=== PATIENT | female | born 1990 | race Caucasian/White ===

== ENCOUNTER → 2019-03-18 13:26 | Outpatient (CLI) | payer OTHER, SELFPAY ==
--- NOTE | 2019-03-18 13:28 | DI.US.S_ITS ---
PROCEDURE: US OB >= 14 WEEKS FETUS INDICATIONS: Anatomy US from 03/15/19 OUTSIDE/PRIOR DATING DATA: Last menstrual period (LMP): 10/16/18. LMP-based estimated date of delivery (IRON): 07/23/19. First dating scan (date and location): 12/19/18. Estimated date of delivery (IRON) from first dating scan: 08/01/19. TECHNIQUE: Real-time scanning was performed of the fetus, with image documentation and biometric measurements. Endovaginal scanning: Not needed for this study COMPARISON: None. FINDINGS: General: A single living intrauterine gestation is present. Presentation: Breech. Placenta: Placental position is anterior, without previa. Amniotic fluid index: 11.4 cm, normal range is 5-24 cm. heart rate: 147 beats per minute. Maternal cervical canal: 3.8 cm long. Normal lower limit is 2.5 cm. biometrics: Biparietal diameter: 4.9 cm, 20 weeks 5 days Head circumference: 18.1 cm, 20 weeks 4 days Abdominal circumference: 15.5 cm, 20 weeks 5 days Femur length: 3.4 cm, 20 weeks 6 days Estimated gestational age from initial scan: 20 weeks 4 days Composite gestational age from present scan: 20 weeks 5 days Estimated weight and percentile: 374 g, 55th percentile Measurement variability for biometric dating: +/- 7 days from 14 weeks to 15 weeks 6 days gestation, +/- 10 days from 16 weeks to 21 weeks 6 days gestation, +/- 2 weeks from 22 weeks to 27 weeks 6 days gestation, +/- 3 weeks for 28 weeks gestation or later. weight reference: 4500 g or EFW >90/95% is considered macrosomia or large for gestational age. EFW <10% is small for gestational age. EFW 5% or less is considered intra-uterine growth restriction. Anatomic survey: Neuro: Ventricles are non-dilated at less than 10 mm. Cisterna magna is normal at 3-11 mm. Cerebellum is normal in size and morphology. Nuchal skin fold: Normal at less than 6 mm between 14-21 weeks gestational age. Face: Nose and lips, facial profile are normal. Spine: No evidence for spina bifida. Heart: 4-chambered heart is present, with normal ventricular outflow tracts. Diaphragm: Diaphragm is intact. Stomach: Left-sided stomach is present. Kidneys: No hydronephrosis. Normal is less than 5 mm in 2nd trimester, less than 7 mm in 3rd trimester. Cord: 3-vessel cord has orthotopic insertion. Bladder: Normal in size. Extremities: All 4 extremities identified. IMPRESSION: Appropriate interval growth, no anomalies seen. However, the sacral spine area was poorly seen due to positioning and depending on the clinical status followup by delayed limited OB ultrasound in 10 days-2 weeks may be warranted to attempt completion of the anatomic survey. Dictated by: Abdiel Rivas M.D. on 03/18/2019 at 15:16 Approved by: Abdiel Rivas M.D. on 03/18/2019 at 15:19
== END ==
PROVIDERS: PCP Family Medicine; Visit Provider Family Medicine
DX: Z34.82 Encounter for supervision of other normal pregnancy, second trimester (principal); Z3A.20 20 weeks gestation of pregnancy
CPT/HCPCS: 76811

== ENCOUNTER 2019-04-12 13:48 | Outpatient (CLI) | payer OTHER, SELFPAY ==
--- NOTE | 2019-04-12 17:01 | P.TNLD_ITS ---
Visit Information Visit Information Date of evaluation: 04/12/19 Primary OB Provider: Tisha France Reason for Evaluation: Yes non-stress test non-stress test reason: decreased movement Comments/Additional reasons for admission: Patient is 25 weeks and called in stating she has not felt the baby move very much today and was worried. Vital Signs Vital Signs: Temperature 36.2? blood pressure 113/52 [facility] Medical History (Updated 04/12/19 @ 17:03 by Tisha France DO) Anemia affecting (Acute) Anxiety (Acute) Surgical History (Updated 02/22/19 @ 14:35 by Yamila Oropeza, RN) [place] teeth extracted (Acute) Family History (Updated 02/22/19 @ 14:40 by Yamila Oropeza RN) Family/Other Diabetes mellitus Father Hyperlipidemia Hypertension Anxiety Grandmother Chronic pain Grandfather Stroke Grandmother No problems noted. 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 Fetus active in the center. Patient reassured. F ollow-up with Dr. Soto as scheduled. OB Disposition: home
== END 2019-04-12 15:00 | disposition home or self-care (01) ==
LOC: LABOR 14:25 → OB 04-15 13:19
PROVIDERS: PCP Family Medicine; Referring Provider Family Medicine; Visit Provider Family Medicine
DX: O36.8120 Decreased fetal movements, second trimester, not applicable or unspecified (principal); Z3A.25 25 weeks gestation of pregnancy
CPT/HCPCS: 59025; G0378; G0379

== ENCOUNTER → 2019-04-22 15:50 | Outpatient (CLI) | payer OTHER, SELFPAY ==
[2019-04-22 17:33] LABS: Hematocrit 33.7 % (36-46); Hemoglobin 11.8 g/dL (12.0-16.0)
[2019-04-22 18:12] LABS: GTT (PREG) 1 Hour PP 50gm Dose 139 mg/dL (76-139)
== END ==
PROVIDERS: PCP Family Medicine; Referring Provider Family Medicine; Visit Provider Family Medicine
DX: Z34.82 Encounter for supervision of other normal pregnancy, second trimester (principal); Z3A.26 26 weeks gestation of pregnancy
CPT/HCPCS: 36415; 82950; 85014; 85018

== ENCOUNTER 2019-06-28 16:18 | Outpatient (CLI) | payer OTHER, SELFPAY ==
--- NOTE | 2019-06-28 16:57 | PM.OBTRLD ---
Visit Information Visit Information Date of evaluation: 06/28/19 Primary OB Provider: Flip Soto On-call OB Provider: Sarah Kemp Comments/Additional reasons for admission: Pt with decreased movement and worsening LE edema. She feels the edema has been gradually worsening over time, but this morning did not seem improved as it usually does after rest. Denies any headache, vision changes, significant RUQ pain. She has felt baby move during the day, but not as much as usual. No vaginal bleeding or LOF. 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[employer]) special alberto needs: No Smoking Status: Never smoker Smokeless tobacco user: dissolvable tobacco (vape) second hand exposure: No alcohol intake: former substance use type: does not use Exam Narrative Exam Narrative: Gen: NAD, sitting comfortably in bed, appears well CV: RRR, no murmurs Resp: clear to auscultation bilaterally Abd: soft, nontender, nondistended, gravid Ext: 2+ pitting edema bilateral LE to mid-calf level Evaluation Evaluation Baseline heart rate: 140 Variability: Moderate (11-25) monitor accelerations: Present monitor decelerations: Absent Diagnosis, Plan/Disposition Final Diagnosis (1) Swelling of lower extremity: Current Visit: No Status: Acute (2) Decreased movement: Current Visit: No Status: Acute (3) 35 weeks gestation of : Current Visit: No Status: Acute Plan/Disposition Plan: 28yo at 35w1d here with decreased movement and worsening LE edema. Reactive NST today. BP remained in normal range for multiple checks here. No other signs/symptoms of pre-eclampsia, and edema has been gradual onset. U/A with only trace protein. Stable for d/c home. Discussed fluid intake, low salt diet, walking. OB Disposition: home
[2019-06-28 17:22] LABS: RBC Urine None Seen (0-5/HPF)
[2019-06-28 17:24] LABS: Appearance Urine UA SL CLOUDY; Bilirubin Urine UA NEGATIVE (NEGATIVE); Color Urine UA YELLOW; Glucose Urine UA 1+ g/dL (Negative); Ketones Urine UA NEGATIVE (NEGATIVE); Leukocyte Esterase Urine UA NEGATIVE (NEGATIVE); Nitrite Urine UA NEGATIVE (Negative); Occult Blood Urine UA NEGATIVE (Negative); Protein Urine UA TRACE (Negative); Urobilinogen Urine UA 0.2 E.U./dL (0.2)
[2019-06-28 17:31] LABS: pH Urine UA 6.5 (4.5-8.0)
[2019-06-28 17:42] LABS: Squamous Epithelial Cell Urine 1-5 /HPF (0-5/HPF)
[2019-06-28 17:43] LABS: Bacteria Urine Many (>30); Culture Indicated Urine Cult Not Indicated; WBC Urine 0-1/HPF (0-5/HPF)
== END 2019-06-28 18:00 | disposition home or self-care (01) ==
LOC: OB 07-01 12:50
PROVIDERS: PCP Family Medicine; Referring Provider Family Medicine; Visit Provider Family Medicine
DX: O36.8130 Decreased fetal movements, third trimester, not applicable or unspecified (principal); O13.3 Gestational [pregnancy-induced] hypertension without significant proteinuria, third trimester; R60.0 Localized edema; Z3A.35 35 weeks gestation of pregnancy
CPT/HCPCS: 59025; 81001; G0378; G0379

== ENCOUNTER → 2019-07-02 15:50 | Outpatient (CLI) | payer OTHER, SELFPAY ==
[2019-07-03 13:16] LABS: Strep Grp B PCR POS for Grp B Strep
== END ==
PROVIDERS: PCP Family Medicine; Visit Provider Family Medicine
DX: Z34.83 Encounter for supervision of other normal pregnancy, third trimester (principal); Z3A.35 35 weeks gestation of pregnancy
CPT/HCPCS: 87653

== ENCOUNTER 2019-07-14 18:58 | Outpatient (CLI) | payer OTHER, SELFPAY ==
--- NOTE | 2019-07-15 07:27 | P.TNLD_ITS ---
Visit Information Visit Information Date of evaluation: 07/14/19 Primary OB Provider: Flip Soto On-call OB Provider: Beatris Altamirano Reason for Evaluation: Yes non-stress test Comments/Additional reasons for admission: 28YO Female @ 37wks 3days here for evaluation for decreased FM and concern for recently elevated BPs in clinic, now with mild IBARRA today. No cramping, VB or LOF. Vital Signs Vital Signs: BP 114/64, [id number], RR18/min, T98.2F Temporal PFSH Medical History Anemia affecting (Acute) Anxiety (Acute) Surgical History [place] teeth extracted (Acute) Family History Family/Other Diabetes mellitus Father Hyperlipidemia Hypertension Anxiety Grandmother Chronic pain Grandfather Stroke Grandmother No problems noted. 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[employer]) special alberto needs: No Smoking Status: Never smoker Smokeless tobacco user: dissolvable tobacco (vape) second hand exposure: No alcohol intake: former substance use type: does not use Review of Systems Review of Systems ROS: Yes All systems reviewed with the patient and are negative except as otherwise documented Exam Vital Signs (past 8 hours): see above Objective Labs Labs: no lab work ordered Evaluation Evaluation Baseline heart rate: 135 Variability: Moderate (11-25) monitor accelerations: Present monitor decelerations: Absent Contraction Frequency (minutes): 0 Category of Tracing: I Diagnosis, Plan/Disposition Plan/Disposition Plan: Discharge to home with routine precautions. Reassurance given on normal BP and audible FM during NST. F/U w/ as previously scheduled. OB Disposition: home
== END 2019-07-14 19:55 | disposition home or self-care (01) ==
LOC: LABOR 19:09 → OB 07-16 13:34
PROVIDERS: PCP Family Medicine; Referring Provider Nurse Practitioner Obstetrics & Gynecology; Visit Provider Nurse Practitioner Obstetrics & Gynecology
DX: O36.8130 Decreased fetal movements, third trimester, not applicable or unspecified (principal); Z3A.37 37 weeks gestation of pregnancy
CPT/HCPCS: 59025; G0378; G0379

== ENCOUNTER 2019-07-16 17:00 | Inpatient (IN) | payer OTHER, SELFPAY ==
[2019-07-16 18:00] VITALS: BP 131/90
--- NOTE | 2019-07-16 19:18 | P.HPOB_ITS ---
OB HPI History of Present Condition Chief complaint: OBSERVATION OF LABOR Narrative: Robina Owen is a 28 year old female G2 para 0 estimated due date 07/31/2018 based on early ultrasound and 07/23/2019 based on LMP. Patient states she may have started leaking on the or . She says she was ensured she just thought she had increased vaginal discharge. She she was wearing a panty liner over the weekend. She was in the center on Monday for decreased movement. Had an evaluation then a reactive NST vital signs were stable. She did not mention that time that she was possibly leaking fluid. Patient was seen in my office today no discussion evaluation she was stating she had increased vaginal discharge on review of that and my concern for possible rupture membranes and nitrazine test was done which was positive she was then sent down to the center and had an AmniSure that was positive. Patient is not sure but she thinks maybe rupture membranes Monday possibly Monday. She has been feeling fine since then no fevers. She says it is a little bit leaking here and there but not consistent. She is feeling baby move. She is continuing to have swelling. On examination in the center. The patient's vital signs were stable she was afebrile. Patient's tracing was category 1. After discussion of patient and review of her current situation patient was admitted to the center for labor induction. On review of her records from outside source as she was a transfer of care at 17 weeks her labs showedPrenatal labs initial hemoglobin 13 hematocrit 38.0 platelets 221 toxoplasmosis negative blood type O positive antibody screen negative rubella immune urine culture mixed ellyn varicella nonimmune GC chlamydia negative. Her GBS status is positive. [facility] Medical History Anemia affecting (Acute) Anxiety (Acute) Surgical History [place] teeth extracted (Acute) Family History Family/Other Diabetes mellitus Father Hyperlipidemia Hypertension Anxiety Grandmother Chronic pain Grandfather Stroke Grandmother No problems noted. 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 General: Alert no apparent distress. Affect is appropriate. Vital signs are stable afebrile HEENT: Neck is supple without lymphadenopathy pupils equal round and reactive. Cardio: S1-S2 regular rate and rhythm. Respiratory: Lungs clear to auscultation. Abdomen: Gravid. Extremities: Normal deep tendon reflexes trace edema. [place]: Minimal contractions heart tones: Category 1 tracing heart rate average 140 Assessment and Plan Assessment and Plan Assessment and Plan narrative: 28-year-old G2 para 1 term estimated due date of 07/23/2019 based on early ultrasound in 528 1st on 20 week ultrasound and 513 based on LMP here for rupture membranes without labor. Concern possible rupture membranes since the or based on patient's history a recollection she says she is not sure. She says small trickle. She has not noticed odor greenish discharge she has not had fevers sure pills abdominal pain or tenderness and was in the center over the weekend because of concern about decreased movement and patient had good movement on evaluation in the center normal vital signs and reactive strip. Currently patient's blood pressure and vital signs are stable. She has a category 1 heart tracing. Cervical exam shows 60% -3 station finger temp. Ultrasound shows vertex position. Amniotic fluid was found to be adequate. Reviewed with patient partner concerns about prolonged rupture of membranes. Discussed about expectant management with induction of labor with the cervical ripening agent and Pitocin discussed with my ECMO immediate concerns about risk of infection chorioamnionitis and stress and distress and mortality which has increased in patient with prolonged rupture of membranes. Did discuss about expedited delivery with with patient. Patient is reassuring category 1 and vital signs are stable and she is afebrile. Patient wanted to continue with expectant management. We discussed if patient develops fever or on reassuring heart tones that the section would become an immediate the eminent. Patient was agreement with this plan. Patient will have an IV started. She is GBS positive will be started on antibiotic prophylaxis. Patient will have frequent monitoring of vitals and expectant management. On examination I do not appreciate any foul odorous vaginal discharge. She does not have uterine tenderness.
[2019-07-16] MEDS: CALCIUM CARBONATE 500 MG TAB PO ×2 (19:50→20:42)
[2019-07-16] MEDS: PENICILLIN G POTASSIUM 5,000,000 UNIT in DEXTROSE 5% IN WATER 250 ML IV (19:51)
[2019-07-16] MEDS: LACTATED RINGERS 1,000 ML 100 ML IV (19:55)
[2019-07-16 20:13] LABS: Add Manual Diff / Slide Review NO; Basophils Absolute Auto 0 /uL (0-100); Basophils Percent Auto 0.2 % (0-2); Eosinophils Absolute Auto 100 /uL (0-450); Eosinophils Percent Auto 0.9 % (2-4); Hematocrit 38.2 % (36-46); Hemoglobin 12.8 g/dL (12.0-16.0); Lymphocytes Absolute Auto 2100 /uL (1100-4500); Lymphocytes Percent Auto 18.9 % (25-40); Mean Corpuscular HGB Conc 33.5 % (30-36); Mean Corpuscular Hemoglobin 30.3 PG (26-34); Mean Corpuscular Volume 90.4 fL (80-100); Monocytes Absolute Auto 800 /uL (0-900); Monocytes Percent Auto 6.8 % (3-14); Neutrophils Absolute Auto 8300 /uL (1500-7000); Neutrophils Percent Auto 73.2 % (50-75); Platelet Count 228 X10^3/uL (150-400); Red Blood Cell Count 4.23 X10^6/uL (4.0-5.2); Red Cell Distribution Width 13.6 % (11.6-14.8); White Blood Cell Count 11.3 X10^3/uL (4.5-11.0)
[2019-07-16] MEDS: DINOPROSTONE VAG (CERVIDIL) 10 MG VAG (20:36)
[2019-07-16 21:34] LABS: COVID19 -Nasal RAPID Negative (Negative)
[2019-07-17] MEDS: PENICILLIN G POTASSIUM 3,000,000 UNIT/50 ML FROZ.PIGGY 100 UNIT IV ×3 (00:32→09:04)
--- NOTE | 2019-07-17 06:50 | P.PN_ITS ---
Subjective Subjective Date Patient Seen: 07/17/19 Time Patient Seen: 06:50 Interval history: Patient with ongoing induction. Rupture of membranes at term without contractions and cervical change. Patient was given Cervidil last night. Patient's vital signs have been stable. Blood pressure is a little bit high in the 130 systolic range. On occasion otherwise 120s. No symptoms of headache or dizziness. Still has some edema. Tracing overnight category 1. She has been afebrile she feels good this morning. Wants to get a shower had a little bit to eat last night. Mainly just Jell-O applesauce and pudding. Exam Narrative Exam Narrative: . General: Alert no apparent distress. HEENT: Pupils equal round and reactive or mucosa is moist Cardio: S1-S2 regular rate and rhythm. Respiratory: Lungs clear to auscultation. Abdomen: Gravid. Extremities: Normal deep tendon reflexes positive for edema. [place]: Sporadic contractions heart tones: Category 1 1 cm 80% -3 station soft mid position Objective Labs Result Diagrams: 07/16/19 19:25 Labs: Laboratory Results - last 24 hr 07/16/19 07/16/19 07/16/19 19:10 19:25 19:25 WBC 11.3 H RBC 4.23 Hgb 12.8 Hct 38.2 MCV 90.4 MCH 30.3 MCHC 33.5 RDW 13.6 Plt Count 228 Neut % (Auto) 73.2 Lymph % (Auto) 18.9 L [place] % (Auto) 6.8 Eos % (Auto) 0.9 L Baso % (Auto) 0.2 Neut # (Auto) 8300 H Lymph # (Auto) 2100 [place] # (Auto) 800 Eos # (Auto) 100 Baso # (Auto) 0 COVID-19 PCR Negative Blood Type O Positive Antibody Screen Negative Assessment & Plan Assessment & Plan narrative: 28-year-old female at term with rupture membranes without labor. Possible rupture on the or . Patient's vitals are stable I will. She is afebrile. GBS status is positive. Ongoing use of penicillin. Category 1 heart tracing. Cervidil last night showed cervical ripening this morning with change of cervix. Intermittent contractions. Patient does not feel. Ongoing induction start Pitocin per protocol this morning. Discussed again risks benefits of ongoing induction. Risk of chorioamnionitis fever and mom and sepsis and baby. Mom is aware of this. Did discuss options of eminent delivery was if a signs of deterioration. Continue to monitor closely.
[2019-07-17] MEDS: LACTATED RINGERS 1,000 ML 100 ML IV ×2 (08:16→15:17)
[2019-07-17] MEDS: OXYTOCIN PREMIX 30 UNIT/500 ML PLAST..BAG IV (08:18)
[2019-07-17] MEDS: CALCIUM CARBONATE 500 MG TAB PO (08:25)
[2019-07-17 10:02] LABS: Alanine Aminotransferase 12 IU/L (<35); Albumin 3.5 g/dL (3.5-5.0); Albumin Globulin Ratio 1.1 (1.0-2.8); Alkaline Phosphatase 107 U/L (38-126); Aspartate Aminotransferase 21 IU/L (14-36); Bilirubin Total 0.3 mg/dL (0.2-1.3); Bilirubin Unconjugated 0.3 mg/dL (0.0-1.1); Globulin 3.3 g/dL (1.7-4.1); HEMOLYSIS < 15 (0-50); Total Protein 6.8 g/dL (6.3-8.2); Uric Acid 4.2 mg/dL (2.5-6.2)
--- NOTE | 2019-07-17 10:36 | PM.OBPNLAB ---
Date/Time Date Patient Seen: 07/17/19 Time Patient Seen: 10:36 Pain Control Pain control: tolerating well Contractions Pitocin rate (mU/min): 2 Contraction pattern: Irregular Status status: Category ll Heart Rate Baseline: 150 Comments: Patient strip being monitored all morning vital signs are stable. Got up to 2 units of Pitocin. heart rate strip became a little bit less reactive went from category 1 to category 2 heart baseline went from 140. 150s. Got patient up out of bed the patient fluid bolus. Repositioned. Patient's vital signs have been stable. Concerning change of category of tracing. Discussed this with patient. Baby not tolerating contractions and pitocin. Expediting delivery via . Reviewed risks benefits and common complications of operative delivery baby. Discussed alternatives which be continue Pitocin contractions and concerns of baby not tolerating labor which currently is showing signs that it is not. Discussed with operating room room crew on-call and patient will be moved to the OR.
[2019-07-17] MEDS: CEFAZOLIN 2 GM/100 ML FROZ.PIGGY IV (11:38)
--- NOTE | 2019-07-17 12:04 | SUR.OPER ---
Supine on Padded OR bed, head on pillow, safety belt at thigh, arms secured on padded arm boards at <90 degrees abduction. Bump under right buttock. Legs uncrossed with pillow under knees, gel pad to heels, tape over blanket to lower legs.
--- NOTE | 2019-07-17 12:22 | SUR.OPER ---
FHT 150 LIVE BABY BOY BORN AT 1210
[2019-07-17] MEDS: ACETAMINOPHEN IV 1,000 MG/100 ML VIAL 400 MG IV (12:43)
--- NOTE | 2019-07-17 12:53 | PM.PROC.1 ---
Procedures Date/Time Date of procedure: 07/17/19 Time of procedure: 12:53 General Procedure description: Procedure: Lower segment transverse section Consent: Verbal and written informed consent were obtained from the patient placed on the chart. Indications: 28-year-old G2 para 1 term with prolonged rupture of membranes trial labor with non reassuring heart tones Findings: Normal uterus normal ovaries Normal male Anesthesia: Spinal Surgeon: Dr. Flip Soto Metal Casket Assembler: Dr. Martínez follows Estimated blood loss: 500 mL Drains: Sena to gravity. IV fluids: 1800 LR Description of procedure: The patient was brought to the operating room after her spinal epidural, preparation, and Sena had been performed. The abdomen was prepped and draped in tested for for analgesia. When it was found to be adequate, a lower abdominal Pfannenstiel incision was made with first with a knife and cared down to the fascia with a second knife. The fascia was incised in the midline and extended laterally with a knife. Bleeding points were clamped with hemostats and Bovie coagulated. The rectus muscles were by blunt dissection. The rectus muscles were divided in the midline and the peritoneum was grasped with hemostats and carefully entered with Moon scissors. The incision was extended bilaterally. The bladder blade was then placed. The vesicoperitoneum was grasped with smooth pickups, entered with Metzenbaum scissors, and extended laterally. The bladder flap was created by gently blunt dissection and placed behind the bladder blade. The lower uterine segment was noted to be thin was carefully incised with the scalpel and extended laterally with the fingers. A live was found to be in the vertex position. The head was then easily elevated with the hand. The baby was then suctioned and cried immediately, and was handed to the waiting attendant. Both maternal and swabs were obtained for infection The placenta was delivered manually. The uterus was explored with a wet lap sponge and found to be clear membranes. The first layer of the uterine closure was with running locking #1 chromic catgut suture. The second layer with an imbricating #1 chromic catgut suture. Hemostasis was carefully checked and found to be satisfactory. The bladder flap was closed with a running 2-0 chromic catgut suture. The fallopian tubes and ovaries were inspected and to be found normal bilaterally. After sponge and needle counts were found to be correct the peritoneum was closed with 2-0 chromic catgut suture. Rectus muscles were approximated in the lower midline. The fascia was closed with a 2 running 0 Vicryl from lateral to midline. The subcutaneous tissue was approximated with interrupted 2.0 plain gut. Bleeding points were Bovie and coagulated. The subcutaneous tissue was approximated with 2.0 plain gut suture. The skin was closed with 1-0 running subcuticular stitch. Urinary output was adequate and normal patient left to the recovery room in satisfactory condition.
[2019-07-17 12:56] VITALS: BP 100/64; PULSE 70; RESP 12; TEMP 36.1; O2SAT 97
[2019-07-17 13:01] VITALS: BP 110/66; PULSE 72; RESP 16; O2SAT 94
[2019-07-17 13:06] VITALS: BP 112/76; PULSE 78; RESP 12
[2019-07-17 13:11] VITALS: BP 112/72; PULSE 65; RESP 12; O2SAT 94
--- NOTE | 2019-07-17 13:16 | SUR.PHASEI ---
Turned patient over to check rodrigue pad; fresh pad and kimberly applied. Denies any pain. Dressing CDI.
[2019-07-17 13:21] VITALS: BP 118/78; PULSE 74; RESP 16; O2SAT 94
[2019-07-17 13:31] VITALS: BP 128/74; PULSE 77; RESP 16; O2SAT 94
[2019-07-17] MEDS: BUTORPHANOL 1 MG/ML VIAL 0.5 MG IV (17:35)
[2019-07-17] MEDS: KETOROLAC 30 MG/ML VIAL IV (18:12)
[2019-07-17] MEDS: OXYCODONE IR 5 MG TABLET PO (18:54)
[2019-07-18] MEDS: OXYCODONE IR 5 MG TABLET PO ×5 (00:07→17:53)
[2019-07-18] MEDS: KETOROLAC 30 MG/ML VIAL IV ×2 (00:08→06:11)
[2019-07-18 06:36] LABS: Add Manual Diff / Slide Review NO; Basophils Absolute Auto 0 /uL (0-100); Basophils Percent Auto 0.5 % (0-2); Eosinophils Absolute Auto 100 /uL (0-450); Eosinophils Percent Auto 0.7 % (2-4); Hemoglobin 11.3 g/dL (12.0-16.0); Lymphocytes Absolute Auto 1000 /uL (1100-4500); Mean Corpuscular HGB Conc 35.2 % (30-36); Mean Corpuscular Hemoglobin 31.4 PG (26-34); Mean Corpuscular Volume 89.4 fL (80-100); Monocytes Absolute Auto 400 /uL (0-900); Monocytes Percent Auto 5.2 % (3-14); Neutrophils Absolute Auto 6900 /uL (1500-7000); Neutrophils Percent Auto 81.6 % (50-75); Platelet Count 152 X10^3/uL (150-400); Red Blood Cell Count 3.58 X10^6/uL (4.0-5.2); Red Cell Distribution Width 13.7 % (11.6-14.8); White Blood Cell Count 8.5 X10^3/uL (4.5-11.0)
--- NOTE | 2019-07-18 08:05 | P.PN_ITS ---
Subjective Subjective Date Patient Seen: 07/18/19 Time Patient Seen: 08:05 Interval history: 28-year-old status post primary for prolonged rupture of membranes without labor nonreassuring heart tones with a trial of labor. Baby's weight was 9 lb 7 oz. Apgars 8 and 9. Since delivery mom's been doing well. Mild abdominal pain which she is taking Percocet for. Her SCDs are often she was able to ambulate. She is tolerating her diet has go od urinary control has some mild incisional pain and a moderate to significant amount of lower extremity edema. Vaginal bleeding as anticipated. Mom's struggling a little bit with breast-feeding and still little bit anxious. Exam Vital Signs (past 8 hours): Oxygen Delivery Method Room Air Oxygen Flow Rate 96 Narrative Exam Narrative: General: Alert no apparent distress. Affect is appropriate. [place] it is uncomfortable. HEENT: Neck is supple without lymphadenopathy pupils equal round and reactive. Cardio: S1-S2 regular rate and rhythm. Respiratory: Lungs clear to auscultation. Abdomen: Uterus firm. Incision clean dry and intact. Extremities: Normal deep tendon reflexes trace edema. Objective Labs Result Diagrams: 07/18/19 06:25 Labs: Laboratory Results - last 24 hr 07/17/19 07/18/19 09:41 06:25 WBC 8.5 RBC 3.58 L Hgb 11.3 L Hct 32.0 L MCV 89.4 MCH 31.4 MCHC 35.2 RDW 13.7 Plt Count 152 Neut % (Auto) 81.6 H Lymph % (Auto) 12.0 L [place] % (Auto) 5.2 Eos % (Auto) 0.7 L Baso % (Auto) 0.5 Neut # (Auto) 6900 Lymph # (Auto) 1000 L [place] # (Auto) 400 Eos # (Auto) 100 Baso # (Auto) 0 Uric Acid 4.2 Total Bilirubin 0.3 Conjugated Bilirubin 0.0 Unconjugated Bilirubin 0.3 AST 21 ALT 12 Alkaline Phosphatase 107 Total Protein 6.8 Albumin 3.5 Globulin 3.3 Albumin/Globulin Ratio 1.1 Assessment & Plan Assessment & Plan narrative: 28-year-old G2 now para 1 status post postoperative day 1. Patient's vital signs are stable. She has some mild edema. Negative lower extremity pain or tenderness bilaterally. Vaginal bleeding is inspected. Mild incisional pain. Taking Percocet for pain control. Tolerating diet. Patient is pain is currently well controlled. She is working on . Plan today continue with ambulation urinary control pain control and . He is afebrile. No significant incisional or uterine tenderness. No significant odorous vaginal discharge.
[2019-07-18] MEDS: DOCUSATE 250 MG CAPSULE PO (09:00)
[2019-07-18] MEDS: PRENATAL VIT,CALC/IRON/FOLIC 1 TABLET 1 TAB PO (09:00)
[2019-07-18] MEDS: IBUPROFEN 600 MG TABLET PO ×2 (11:00→17:47)
[2019-07-18] MEDS: HYDROCODONE/ACET 5/325 TABLET 2 TAB PO (22:28)
[2019-07-19] MEDS: IBUPROFEN 600 MG TABLET PO ×2 (01:18→06:54)
[2019-07-19] MEDS: OXYCODONE IR 5 MG TABLET PO ×2 (02:17→06:54)
--- NOTE | 2019-07-19 07:29 | P.DS_ITS ---
History of Present Illness History of Present Illness Date Patient Seen: 07/19/19 Time Patient Seen: 07:30 Chief complaint: Labor & Delivery Discharge Providers Provider Date of admission: 07/16/19 17:00 Discharge Date: 07/19/19 Primary care physician: Flip Soto MD Consults: 07/17/19 15:01 Consult to Clinical Research Nurse Coordinator Routine Comment: Discharge provider: Flip Soto MD Summary Hospital Course Discharge Diagnosis: Thirty-nine weeks gestational age G2 now para 1 mom with prolonged rupture of membranes Induction of labor with Cytotec and Pitocin Contractions stress test with nonreassuring heart tones patient talking to operating room for primary Delivery of viable male Apgars 8 9 weight 9 lb 7 oz Routine post care Hospital Course: Please see admission note for admission details. Patient admitted the hospital 39 weeks gestational age G2 now para 1 with the primary section after prolonged rupture of membranes induction of labor and non-reassuring heart tones after administration of Pitocin with non able to on tolerate Pitocin contractions with heart tones were nonreassuring. Patient had a without complications. day 1. Sena catheter was removed STDs removed tolerating diet ambulating. Hep-Lock was later removed. day 2. Blood pressures and vital signs were stable had some edema. Eating. Breast-feeding was better. Pain was well controlled with oral pain medication. Still some edema. Negative Nadia signs. Somewhat anxious. Pain medication was doing well. public relations consultant met with patient and baby and doing well. Exam Vital Signs (past 8 hours): Oxygen Delivery Method Room Air Oxygen Flow Rate 96 Narrative Exam Narrative: General: Alert no apparent distress. Affect is appropriate. Kavya it is uncomfortable. HEENT: Neck is supple without lymphadenopathy pupils equal round and reactive. Cardio: S1-S2 regular rate and rhythm. Respiratory: Lungs clear to auscultation. Abdomen: Uterus firm. Incision clean dry and intact. Extremities: Normal deep tendon reflexes trace edema. Objective Labs Result Diagrams: 07/18/19 06:25 Discharge Plan Discharge Plan Patient Disposition: Home Discharge orders & Medications Prescriptions: New oxycodone-acetaminophen 5-325 mg Tablet 2 tab PO Q4HR PRN (Reason: Pain, Severe (7-10)) Qty: 30 RF: 0 ibuprofen 600 mg Tablet 600 mg PO Q6HR PRN (Reason: Fever/Mild Pain (1-3)) Qty: 30 RF: 0 docusate sodium 250 mg Capsule 250 mg PO DAILY Qty: 30 RF: 0 Continued prenat.vits,korin,[id number] Tablet 1 tab PO DAILY RF: 0 Follow up/Referrals: Flip Soto MD [Primary Care Provider] - Visit Report/Discharge Packet Visit Report Forms: Patient Portal/API, Stroke Signs & Symptoms Discharge Data Primary Care Provider: Flip Soto
[2019-07-19] MEDS: DOCUSATE 250 MG CAPSULE PO (08:44)
[2019-07-19] MEDS: PRENATAL VIT,CALC/IRON/FOLIC 1 TABLET 1 TAB PO (08:44)
[2019-07-19 10:36] VITALS: BP 130/92; PULSE 88; RESP 17; TEMP 37.1
[2019-07-19 10:44] VITALS: BP 130/92; PULSE 88; RESP 17; TEMP 37.1
== END 2019-07-19 12:40 | disposition home or self-care (01) | DRG 788 ==
PROVIDERS: Admitting Provider Family Medicine; PCP Family Medicine; Referring Provider Family Medicine; Visit Provider Family Medicine
PROC: 10D00Z1 Extraction of Products of Conception, Low, Open Approach (ICD-10-PCS; CPT 59514; principal; 2019-07-17 11:15)
DX: O42.92 Full-term premature rupture of membranes, unspecified as to length of time between rupture and onset of labor (principal); O99.02 Anemia complicating childbirth; D64.9 Anemia, unspecified; O99.824 Streptococcus B carrier state complicating childbirth; O36.8130 Decreased fetal movements, third trimester, not applicable or unspecified; Z3A.39 39 weeks gestation of pregnancy; Z37.0 Single live birth; O76 Abnormality in fetal heart rate and rhythm complicating labor and delivery; O36.8330 Maternal care for abnormalities of the fetal heart rate or rhythm, third trimester, not applicable or unspecified; Z11.59 Encounter for screening for other viral diseases
CPT/HCPCS: 36415; 59025; 59050; 59510; 59514; 80076; 84550; 85025; 86850; 86900; 86901; 87070; 87075; 87077; 87186; 87205; 87635; G0379; J0131; J0595; J0690; J1885; J2250; J2274; J2540; J2590

== ENCOUNTER → 2020-05-07 09:15 | Outpatient (CLI) | payer OTHER, SELFPAY ==
[2020-05-07 11:10] LABS: Hematocrit 41.1 % (36-46); Hemoglobin 14.3 g/dL (12.0-16.0)
[2020-05-07 12:21] LABS: TSH w/ Reflex to FT4 1.18 uIU/mL (0.47-4.68)
== END ==
PROVIDERS: PCP Family Medicine; Referring Provider Family Medicine; Visit Provider Family Medicine
DX: R53.83 Other fatigue (principal)
CPT/HCPCS: 36415; 84443; 85014; 85018